=== PATIENT | male | born 1980 | race African-American/Black ===

== ENCOUNTER 2023-03-20 03:37 | Emergency (ER) | payer MEDICAID ==
[~2023-03-20] VITALS: Ht 182.9 cm; Wt 121.0 kg
[2023-03-20 03:49] VITALS: BP 148/79; PULSE 110; RESP 18; TEMP 98.8; O2SAT 97
[2023-03-20] MEDS ORDERED: KETO15CR2 TP (05:35)
[2023-03-20] MEDS ORDERED: DOXY100C5 PO (05:35)
[2023-03-20] MEDS ORDERED: CEFD300C3 PO (05:35)
== END 2023-03-20 07:12 | disposition home or self-care (01) ==
LOC: ER 03:37
DX: B35.3 Tinea pedis (principal); Z76.0 Encounter for issue of repeat prescription
CPT/HCPCS: 99283

== ENCOUNTER 2024-04-28 04:00 | Inpatient (IN) | payer MEDICAID ==
[~2024-04-28] VITALS: Ht 182.9 cm; Wt 138.3 kg
[~2024-04-28 04:00] MED LIST: ALD50 MT; AMLO10TA4 MT; FURO80TA87 MT; LOSA100T33 MT
[2024-04-28 04:10] VITALS: O2SAT 97
[2024-04-28 05:10] LABS: CLARITY URINE CLOUDY (CLEAR); COLOR URINE DARK YELLOW (YELLOW); GLUCOSE URINE NEGATIVE (NEGATIVE); KETONES URINE TRACE (NEGATIVE); LEUKOCYTE ESTERASE URINE TRACE (NEGATIVE); NITRITE URINE NEGATIVE (NEGATIVE); OCCULT BLOOD URINE NEGATIVE (NEGATIVE); PH URINE 5.5 (4.5-8.0); PROTEIN URINE 1+ (NEGATIVE); SPECIFIC GRAVITY URINE 1.029 (1.005-1.030)
[2024-04-28 05:26] LABS: BASOPHILS % 0.6 % (0.0-2.0); EOSINOPHILS % 3.2 % (0.0-5.0); HEMOGLOBIN. 13.8 g/dL (14.0-18.0); LYMPHOCYTES % 19.4 % (20.0-50.0); MEAN CORPUSCULAR HEMOGLOBIN 30.5 pg (28.0-32.0); MEAN CORPUSCULAR HGB CONC 33.7 g/dL (31.0-37.0); MEAN CORPUSCULAR VOLUME 90.4 fL (80.0-94.0); MEAN PLATELET VOLUME 7.9 fl (7.4-10.4); MONOCYTES % 13.8 % (2.0-8.0); PLATELET 298 x1000/uL (130-400); RED BLOOD CELL COUNT 4.53 mill/uL (4.7-6.1); RED CELL DISTRIBUTION WIDTH 14.9 % (11.6-14.6); WHITE BLOOD COUNT 5.7 x1000/uL (4.5-11.0)
[2024-04-28 05:33] LABS: SQUAMOUS EPITHELIAL CELL URINE 1+ /lpf (RARE/1+)
[2024-04-28 05:37] LABS: BACTERIA URINE NONE SEEN; CALCIUM OXALATE CRYSTALS URINE 1+ /lpf; COARSE GRANULAR CASTS URINE 0-5 /lpf; FINE GRANULAR CASTS URINE 0-5 /lpf; RBC URINE 0-2 /hpf (0-2)
[2024-04-28 05:41] LABS: CHLORIDE 104 mEq/L (98-107); POTASSIUM 3.2 mEq/L (3.5-5.1); SODIUM 140 mEq/L (136-145)
[2024-04-28 05:42] LABS: CARBON DIOXIDE 28 mEq/L (21-32)
[2024-04-28 05:43] LABS: CALCIUM 9.2 mg/dL (8.7-10.4)
[2024-04-28 05:47] LABS: CREATININE 1.3 mg/dL (0.6-1.3)
[2024-04-28 05:48] LABS: GLUCOSE 139 mg/dL (70-105); UREA NITROGEN BLOOD 13 mg/dL (9-23)
[2024-04-28 05:49] LABS: TROPONIN I HIGH SENSITIVITY 8 ng/L (3.0-53)
[2024-04-28] MEDS: ENALAPRIL 2.5MG/2ML VIAL 2ML IV ONE (06:15)
[2024-04-28] MEDS: ENALAPRIL 1.25MG/ML VIAL 1ML IV NR (06:48)
[2024-04-28] MEDS: FUROSEMIDE 40MG/4ML VIAL IVP ONE (06:48)
[2024-04-28] MEDS ORDERED: ONDANSETRON HCL 4MG/2ML INJ IV PRN (10:15)
[2024-04-28] MEDS ORDERED: MAGNESIUM/ALUMINUM HYDROXIDE/SIMETHICONE 30ML UDC PO PRN (10:15)
[2024-04-28] MEDS ORDERED: ZOLPIDEM TARTRATE 5MG TABLET PO PRN (10:15)
[2024-04-28] MEDS ORDERED: HYDRALAZINE 20MG/ML VIAL IV PRN (10:15)
[2024-04-28 10:20] VITALS: BP 159/96; PULSE 95; RESP 18; TEMP 36; O2SAT 98
[2024-04-28 11:00] VITALS: BP 159/96; PULSE 95; RESP 18; TEMP 36
[2024-04-28 12:00] VITALS: BP 148/79; PULSE 94; RESP 20; TEMP 36.4; O2SAT 96
[2024-04-28] MEDS: AMLODIPINE 5MG TABLET PO SCH (14:23)
[2024-04-28] MEDS: ACETAMINOPHEN 325MG TABLET PO PRN (14:24)
[2024-04-28] MEDS: POTASSIUM CHLORIDE 20MEQ TABLET SR PO SCH (14:26)
[2024-04-28] MEDS: SPIRONOLACTONE 50MG TABLET PO SCH (14:27)
[2024-04-28] MEDS: LOSARTAN 50 MG TABLET PO SCH (14:27)
[2024-04-28] MEDS: SODIUM CHLORIDE 0.9% 3ML FLUSH IVF SCH (14:28)
[2024-04-28] MEDS: ENOXAPARIN 40MG/0.4ML SYR SUBCUT SCH (14:29)
[2024-04-28 16:00] VITALS: BP 140/97; PULSE 102; RESP 18; TEMP 36.2; O2SAT 100
[2024-04-28] MEDS ORDERED: PANTOPRAZOLE 40MG DR TABLET PO SCH (16:00)
[2024-04-28] MEDS: MAGNESIUM/ALUMINUM HYDROXIDE/SIMETHICONE 30ML UDC PO PRN (17:32)
[2024-04-28] MEDS: PANTOPRAZOLE SODIUM 40 MG/VIAL IV SCH (17:47)
[2024-04-28 18:33] LABS: *AMPHETAMINES SCREEN URINE PRESUMPTIVE POSITIVE (NEGATIVE); *BARBITURATES SCREEN URINE NEGATIVE (NEGATIVE); *BENZODIAZEPINES SCREEN URINE NEGATIVE (NEGATIVE)
[2024-04-28 18:34] LABS: *COCAINE SCREEN URINE NEGATIVE (NEGATIVE); CANNABINOID URINE SCREEN PRESUMPTIVE POSITIVE (NEGATIVE); ECSTASY MDMA SCREEN URINE CONF.TEST INDICATED (NEGATIVE); METHADONE URINE SCREEN NEGATIVE (NEGATIVE); OPIATES URINE SCREEN NEGATIVE (NEGATIVE); PHENCYCLIDINE URINE SCREEN NEGATIVE (NEGATIVE)
[2024-04-28 20:00] VITALS: BP 145/91; PULSE 101; RESP 22; TEMP 36; O2SAT 100
[2024-04-28] MEDS ORDERED: FUROSEMIDE 40MG/4ML VIAL IVP SCH (21:00)
[2024-04-28] MEDS: FUROSEMIDE 40MG TABLET PO SCH (21:28)
[2024-04-28 21:54] LABS: HEPATITIS B SURFACE ANTIGEN NEGATIVE (Negative)
[2024-04-28 22:15] LABS: HEPATITIS C AB NON REACTIVE (Neg) (Negative)
[2024-04-29] VITALS: BP 158/101; PULSE 94; RESP 20; TEMP 36.3; O2SAT 100
[2024-04-29] MEDS: CLONIDINE 0.1MG TABLET PO PRN (00:55)
[2024-04-29] MEDS: DIPHENHYDRAMINE 50MG/ML VIAL IV PRN (00:55)
[2024-04-29 04:00] VITALS: BP 153/102; PULSE 92; RESP 22; TEMP 35.5; O2SAT 97
[2024-04-29 07:48] LABS: CHLORIDE 104 mEq/L (98-107); POTASSIUM 3.6 mEq/L (3.5-5.1)
[2024-04-29 07:49] LABS: CARBON DIOXIDE 28 mEq/L (21-32); SODIUM 139 mEq/L (136-145)
[2024-04-29 07:50] LABS: CALCIUM 9.5 mg/dL (8.7-10.4)
[2024-04-29 07:54] LABS: CREATININE 1.1 mg/dL (0.6-1.3); GLUCOSE 100 mg/dL (70-105)
[2024-04-29 07:55] LABS: UREA NITROGEN BLOOD 10 mg/dL (9-23)
[2024-04-29 07:57] LABS: PHOSPHORUS 3.4 mg/dL (2.5-4.9)
[2024-04-29 08:00] VITALS: BP 154/91; PULSE 94; RESP 20; TEMP 36.4; O2SAT 98
== END 2024-04-29 09:40 | disposition left against medical advice (07) | DRG 194 ==
LOC: ER 04:00 → 6WST 08:03 → EDBEDREQTM 08:05 → EDBEDREQ 08:05
PROVIDERS: ADMIT Internal Medicine; ATTEND Internal Medicine
DX: I11.0 Hypertensive heart disease with heart failure (principal); E66.01 Morbid (severe) obesity due to excess calories; E87.6 Hypokalemia; Z53.21 Procedure and treatment not carried out due to patient leaving prior to being seen by health care provider; I50.33 Acute on chronic diastolic (congestive) heart failure; R10.84 Generalized abdominal pain; F15.90 Other stimulant use, unspecified, uncomplicated; Z68.41 Body mass index [BMI] 40.0-44.9, adult; Z79.899 Other long term (current) drug therapy
CPT/HCPCS: 36415; 71045; 80048; 80305; 81003; 83735; 83880; 84100; 84484; 85025; 86705; 87340; 93005; 93971; 99285; J1200; J1650; J1940; J2470; J3490